=== PATIENT | male | born 1950 | race Caucasian/White ===

== ENCOUNTER 2023-07-25 16:01 | Emergency (ER) | payer MEDICARE, SELFPAY ==
[2023-07-25 16:01] VITALS: BMI 36.4
[2023-07-25 16:08] VITALS: BP 169/83
[2023-07-25 16:43] LABS: Hematocrit 41.9 % (39.0-52.0); Hemoglobin 15.2 g/dL (13.0-18.0); Mean Corp Hgb Conc. 36.3 g/dL (33.0-37.0); Mean Corpuscular Hgb 32.3 pg (27.0-31.0); Mean Platelet Volume 10.3 fL (7.4-10.4); Platelet Count 194 10^3/uL (130-400); Red Blood Cell Count 4.71 10^6/uL (4.70-6.10); Red Cell Dist. Width 12.8 % (11.5-14.5); White Blood Cell Count 6.1 10^3/uL (4.8-10.8)
[2023-07-25 16:51] LABS: ALT (SGPT) 28 U/L (0-50); AST (SGOT) 34 U/L (17-59); Albumin 4.3 g/dl (3.5-5.0); Alkaline Phosphatase 50 U/L (38-126); Blood Urea Nitrogen 16 mg/dl (9-20); Calcium 9.6 mg/dl (8.4-10.2); Carbon Dioxide 25 mmol/L (22-30); Chloride 106 mmol/L (98-107); Glucose 93 mg/dl (70-99); Potassium 4.2 mmol/L (3.5-5.1); Sodium 140 mmol/L (135-145); Total Bilirubin 0.7 mg/dl (0.2-1.3); Total Protein 7.2 g/dl (6.3-8.2); eGFR > 60.00
[2023-07-25 16:57] LABS: Troponin I < 0.012 ng/ml
[2023-07-25 17:00] VITALS: BP 132/71
[2023-07-25 18:00] VITALS: BP 130/66
[2023-07-25 18:26] LABS: COVID-19 Antigen Negative (Negative)
[2023-07-25] MEDS: DUONEB 3 ML INH (18:52)
[2023-07-25] MEDS: SOLU-MEDROL PF 125 MG IV (18:53)
[2023-07-25 19:00] VITALS: BP 135/65
--- NOTE | 2023-07-25 19:30 | ED.GENMED ---
History of Present Illness
General
Chief Complaint: Chest Pain
Source: patient and spouse
Exam Limitations: none
Time Seen by Provider: 07/25/23 16:56
Nursing documentation reviewed up to this point in time: agreed with
Travel History
Have you had any contact with someone who has COVID-19?: No
Do you have any symptoms of coronavirus? Fever > 100 degrees, chills, cough, shortness of breath, sore throat, loss of taste or smell, muscle aches, or headache?: Yes
Symptoms:: see above
History of Present Illness
History of Present Illness:
72-year-old male with a past medical history of hypertension, hyperlipidemia, PVCs, COPD, BIPIN, obesity, BPH who presents to the emergency department with his for evaluation of chest pain, cough, sore throat, congestion. Patient reports that he
has been feeling unwell for the past 3 days and his symptoms have been constant. He reports that initially he noticed 'horrendous' postnasal drip and his associated sore throat. He says he has had hacking nonproductive cough. He says that he has
felt generally fatigued. He tells me that over the past day or 2 he has started develop some pain in the chest as well as some mild shortness of breath. He says he has noticed more PVCs than usual. He says that symptoms seem to be worsening which
prompted him to come to the emergency room to be assessed. He denies any exertional component to his chest pain but he does feel more fatigued than usual with exertion. He denies any fevers or chills. He denies any swelling or pain in his legs.
He denies any other specific complaints. He does note that he has a history of significant allergies including to cats and he recently adopted a kitten.
Past History
Past History
ED Past Medical History: GERD, HTN, Hypercholesterolemia, Other (GERD, hypertension, hyperlipidemia, diverticulitis with bowel resection) and Other
ED Past Surgical History: Bowel resection
Social History
Tobacco: Non-smoker
Alcohol: Occasional
Personal:
Living: with family
Employment: Employed
Family History
Family History: Hypertension and Other (Brother had a stroke)
Review of Systems
Review of Systems
All Other Systems: ROS reviewed and negative except as documented in HPI and ROS
Constitutional: Reports fatigue; Denies fever or chills
EENT: Reports sore throat and runny nose
Respiratory: Reports cough and trouble breathing
Cardiac: Reports chest pain and palpitations; Denies diaphoresis
ABD/GI: Denies abdominal pain, nausea, vomiting or diarrhea
: Denies flank pain
Musculoskeletal: Denies edema, neck pain or back pain
Neurological: Denies dizzy, headache, weakness or numbness
Phy Exam
Physical Exam
Physical Exam:
General: Awake, alert, oriented x3; no acute distress
Head: Normocephalic, atraumatic
Eyes: Conjunctiva normal, pupils equal round and reactive to light bilaterally
Throat: Airway intact, handling secretions, slight erythema posterior pharynx but no tonsillar enlargement or exudate, midline uvula
Neck: Trachea midline, no JVD
Lungs: Occasional coughing and scattered wheeze but no focal rales or rhonchi, normal respiratory rate, normal pulse ox on room air
Heart: Regular rate and rhythm, no murmurs, gallops, or rubs
Abd: Soft, non distended, nontender
Neuro: Cranial nerves grossly intact, speech fluid
Skin: no rash
Extremities: No edema in extremities, equal pulses in all extremities
Scores
Heart Failure Risk
Heart Failure Risk Score: Not Applicable
Heart Score for Chest Pain Patients
STEMI patient?: No
History: Slightly or Non-Suspicious
ECG: Normal
Age: >/= 65 years
Risk Factors: >/= 3 Risk Factors or History of CAD
Troponin: </= Normal Limit
Heart Score for Chest Pain Patients: 4
Heart Score Risk: 20.3% MACE over next 6 weeks
Withdrawal Assessment of Alcohol
Withdrawal Assessment Completed?: Not applicable
Course
Orders/Labs/Results
Orders:
Orders
07/25/23 16:03
ECG [Electrocardiogram (*1)] Urgent
Reason for Study: Chest Pain
EKG- Treatment ONCE
07/25/23 16:24
Complete Blood Count/No Diff Urgent
Comprehensive Metabolic Panel Urgent
NT-proBNP Urgent
Comment: ADD ON
Troponin I Urgent
07/25/23 17:34
CR Chest - 2 Views Urgent
Comment:
Reason For Exam: chest pain, SOB
07/25/23 17:52
Add On- LAB Urgent
Tests Added?: proBNP
07/25/23 18:04
COVID-19 Antigen Urgent
Source: Nasal Swab
Influenza A+B Rapid Molecular Urgent
CANDE Source: Nasal Swab
Specimen Description:
07/25/23 18:37
Ipratropium/Albuterol Sulfate [Duoneb] 3 ml INH R NOW ONE
07/25/23 18:38
MethylPREDNISolone PF [Solu-Medrol Pf] 125 mg IV NOW STA
Abnormal Lab Results
07/25/23
16:24
MCH 32.3 H pg
(27.0-31.0)
07/25/23 16:24
07/25/23 16:24
Vital Signs
Initial and Last Documented VS:
Initial Vital Signs
Temp Pulse Resp BP Pulse Ox
36.8 C 73 18 169/83 97
07/25/23 16:08 07/25/23 16:08 07/25/23 16:08 07/25/23 16:08 07/25/23 16:08
Last Documented Vital Signs
Temp Pulse Resp BP Pulse Ox
36.8 C 63 15 135/65 99
07/25/23 16:08 07/25/23 19:00 07/25/23 19:00 07/25/23 19:00 07/25/23 19:00
MDM/Problems Addressed
Differential Diagnosis Includes:
Viral bronchitis, pneumonia, viral URI, allergic rhinitis/bronchitis, COPD exacerbation, ACS/CHF
MDM/Problems Addressed:
72-year-old male with past medical history as documented presents to the emergency room with congestion/postnasal drip and sore throat with accompanying cough and now progressive chest pain and shortness of breath. Hypertensive in triage which
normalized by my assessment, otherwise normal vitals including pulse ox of 99% on room air and respiratory rate of 15-18. Physical exam is as above. By history I suspect that this is either allergic rhinosinusitis leading to COPD exacerbation or
perhaps a viral infection leading to bronchitis/COPD exacerbation. Will plan to place an IV check labs including a CBC and a CMP, troponin. Will check viral swabs. Check chest x-ray. Will treat with a DuoNeb and steroid. Will monitor closely
reassess after the above.
Labs reviewed: CBC and CMP unremarkable. Troponin undetectable and with consistent symptoms for greater than 24 hours this is sufficient to rule out acute PA. His chest x-ray reviewed by me shows no pneumonia or other acute pathology. Patient
received DuoNeb continue to monitor pending treatment and will reassess.
Patient feeling better after DuoNeb and steroid here. Lungs clear to auscultation. Vital signs have been stable. I suspect that this is likely bronchitis/COPD exacerbation likely triggered by allergies with pollen and recent adoption of kitten to
which he is allergic. Plan to start on steroid for the next few days and prescribed albuterol for patient to use via nebulizer. No clear indication for admission at this point in time, I think he is stable for discharge and can follow-up with his
primary physician as an outpatient. He feels very comfortable with this plan. We spoke about return precautions and all questions were answered.
Chronic conditions affecting care:
COPD, hypertension
Acute Exacerbation and/or Progression of Chronic Illness:
Acutely hypertensive resolved without intervention continue to monitor but no additional antihypertensive indicated at present
Acute Exacerbation and/or Progression of Chronic Illness: HTN
*Radiology
Radiology exam reviewed: preliminary read by ED provider and radiology read reviewed
*Pulse Oximetry
Patient hypoxic: no
*EKG
Interpreted by ED Provider?: Yes
Heart Rate: 76
Rate: normal
Rhythm: sinus
[place]: normal axis
Interval: normal interval
QRS Pattern: normal QRS
Ischemia: no ischemia
*Critical Care Note
Total Time (30-74mins, 75-104mins- exclusive of procedures): Not Applicable
Data Reviewed
Review of Other/Old Records Reveals: Labs and Records
Source: patient, records and spouse
ED Attending Note
-
Portions of this chart may have been created with voice recognition software.� Occasional wrong word or��sound alike� substitutions may have occurred due to the inherent limitations of voice recognition software.
Discharge Plan
Departure
Patient Disposition: Home (Routine Discharge)
Date of Disposition: 07/25/23
Time of Disposition: 20:20
Patient with high blood pressure during this ER visit?: Yes
Discharge Problem:
Bronchitis
Instructions: Bronchitis, Adult ED
Prescriptions:
New
methylprednisolone [Methylpred DP] 4 mg tablets,dose pack
See Rx Instructions .ROUTE .COMPLEX Qty: 21 0RF
Rx Instructions:
for 6 days
albuterol sulfate 2.5 mg /3 mL (0.083 %) solution for nebulization
2.5 mg inhalation Q4H PRN (Reason: shortness of breath or wheezing) Qty: 75 0RF
No Action
lisinopril 20 MG tablet
20 mg PO BID
pantoprazole 40 MG tablet,delayed release (DR/EC)
40 mg PO HS
finasteride 5 MG tablet
5 mg PO DAILY
cholecalciferol (vitamin D3) 2,000 UNIT tablet
2,000 unit PO DAILY
cyanocobalamin (vitamin B-12) 5,000 MCG tablet,disintegrating
5,000 mcg PO DAILY
coenzyme Q10 [Co Q-10] 100 MG capsule
100 mg PO DAILY
Hold Instructions: Resume on 11/26/22.
hydroxychloroquine [Plaquenil] 200 MG tablet
200 mg PO BID
jtpcqnnpxyt-uqixyblai-ray C-Mn [Glucosamine Chondroitin MaxStr] 500-400 mg Capsule
1 cap PO DAILY
Hold Instructions: Resume on 11/26/22.
mupirocin 2 % ointment
1 applic topical BID Qty: 1 0RF
Patient Comments:
started 3 days ago
meloxicam 15 mg tablet
15 mg PO DAILY Qty: 14 0RF
Rx Instructions:
take with food
post-op
tramadol 50 mg tablet
50 - 100 mg PO Q6H PRN (Reason: 1 tab moderate, 2 tabs if pain severe) Qty: 30 0RF
Rx Instructions:
Dx Orthopedic surgery
Ongoing therapy
post-op
gabapentin 300 mg capsule
300 mg PO HS Qty: 10 0RF
ondansetron [ondansetron] 4 mg tablet,disintegrating
4 mg PO Q6H PRN (Reason: n/v) Qty: 15 0RF
Rx Instructions:
take 1/2h b/f pain med if recurrent nausea
allow to dissolve in mouth w/o water
aspirin 325 mg tablet
325 mg PO DAILY Qty: 1 0RF
Rx Instructions:
Take with food
docusate sodium [Colace] 100 mg capsule
100 mg PO BID Qty: 1 0RF
magnesium hydroxide [Milk of Magnesia] 400 mg/5 mL suspension
30 ml PO HS PRN (Reason: Constipation) Qty: 1 0RF
sennosides [Senokot] 8.6 mg tablet
17.2 mg PO BID Qty: 2 0RF
acetaminophen [Tylenol] 325 mg capsule
650 mg PO QID Qty: 2 0RF
dicyclomine 10 mg capsule
10 mg PO QID PRN (Reason: abdominal pain) Qty: 20 0RF
Referrals:
Rylan Wall, DO [Family Provider] - Follow up in 5-7 days
Activity Restrictions/Additional Instructions:
Thank you for visiting the Emergency Department at [facility].
1. Please schedule a follow up appointment as directed. Call first thing tomorrow morning to make an appointment.
2. If indicated, please take your medications as instructed and indicated on discharge paperwork.
3. If any of your symptoms do not improve, or persist, or become more severe within 6-12 hours, please return to the emergency department for further care.
4. Please return to the emergency department if you develop a headache, neck pain/stiffness, fever greater than 100.4F, chest pain, shortness of breath, persistent nausea, vomiting, slurred speech, difficulty walking, numbness/tingling, weakness,
signs of infection or any other symptoms that are worrisome to you.
Please call [phone] if you have any questions.
Interventions
Interventions:
*Risk Screen - Suicide Last Done: 07/25/23 17:05
*General Assessment Last Done: 07/25/23 16:08
*Neglect/Abuse Screening Last Done: 07/25/23 16:08
ED- Fall Risk Assessment Last Done: 07/25/23 17:05
*ED COVID-19 Vaccine History Last Done: 07/25/23 16:08
ED- Cardiac Assessment Last Done: 07/25/23 17:05
Discharge Date and Time
Print Language: WELSH
[2023-07-25 20:00] VITALS: BP 131/61
[2023-07-25 20:27] LABS: NT-proBNP 32.7 pg/ml
== END 2023-07-25 20:59 | disposition home or self-care (01) ==
LOC: EMR 16:01
PROVIDERS: Emergency Medicine; EMERGENCY PHYSICIAN Emergency Medicine; FAMILY PHYSICIAN Family Medicine
DX: J40 Bronchitis, not specified as acute or chronic (principal); I10 Essential (primary) hypertension; E78.00 Pure hypercholesterolemia, unspecified; J44.9 Chronic obstructive pulmonary disease, unspecified
CPT/HCPCS: 99285; 96374; 94640; 71046; 80053; 83880; 84484; 85027; 87502; 87811; 93005

== ENCOUNTER → 2024-01-01 13:49 | Outpatient (REF) | payer MEDICARE, SELFPAY | LOC: HWRAD 13:49 | PROVIDERS: ATTENDING PHYSICIAN Family Medicine | DX: R05.1 Acute cough (principal); J40 Bronchitis, not specified as acute or chronic | CPT/HCPCS: 71046 ==

== ENCOUNTER → 2024-01-13 11:27 | Outpatient (REF) | payer MEDICARE, SELFPAY | LOC: HWRCS 11:27 | PROVIDERS: ATTENDING PHYSICIAN Internal Medicine Cardiovascular Disease; FAMILY PHYSICIAN Family Medicine | DX: I10 Essential (primary) hypertension (principal); I49.3 Ventricular premature depolarization | CPT/HCPCS: 93306 ==

== ENCOUNTER 2024-12-10 11:01 | Emergency (ER) | payer MEDICARE, SELFPAY ==
[2024-12-10 11:16] VITALS: BP 157/88
--- NOTE | 2024-12-10 11:56 | ED.GENMED ---
History of Present Illness
General
Chief Complaint: Back Pain
Source: patient and spouse
Exam Limitations: none
Time Seen by Provider: 12/10/24 11:38
History of Present Illness
History of Present Illness:
74-year-old male complaining of about 10 days of back pain that more recently has radiated to the upper back across his shoulders to his upper chest. Not truly exertional. Symptoms are there most of the time. Patient feels there may be a
positional component. No pleuritic pain no shortness of breath. Sent in by his primary physician for further evaluation. Patient has a history of chronic lower back pain. Initially thought this was musculoskeletal
Past History
Past History
ED Past Medical History: GERD, HTN, Hypercholesterolemia, Other (GERD, hypertension, hyperlipidemia, diverticulitis with bowel resection) and Other
ED Past Surgical History: Bowel resection, Orthopedic and Other (Hernia repair)
Social History
Tobacco: Non-smoker
Alcohol: Occasional
Personal:
Living: with family
Employment: Employed
Family History
Family History: Hypertension and Other (Brother had a stroke)
Review of Systems
Review of Systems
All Other Systems: Not applicable
Constitutional: Denies fever
Respiratory: Reports no symptoms
ABD/GI: Reports no symptoms
Phy Exam
Physical Exam
Physical Exam:
GENERAL: Alert and oriented in no apparent distress
EYE: Orbits normal.
NECK: Supple, no significant adenopathy.
ENT: Pharynx without erythema
CARDIAC: Regular rate and rhythm with very mild midsystolic murmur. Good distal pulses and color.
LUNGS: Clear breath sounds,normal
ABDOMEN: Soft, without focal tenderness or distention
NEUROLOGICAL: Alert and oriented , grossly non-focal
SKIN: Warm and dry, no rash or lesion, no discoloration, skin intact.
MUSCULOSKELETAL: No edema,no deformity.Good color
PSYCH: Normal and appropriate interaction.
Course
Orders/Labs/Results
Orders:
Orders
12/10/24 11:19
Electrocardiogram (*1) Urgent
Reason for Study: Other
Other Reason for Exam: back pain
EKG- Treatment ONCE
12/10/24 11:54
CT Chest/abd/pelvis Angio W/wo Urgent
Comment:
Reason For Exam: Back pain radiation to shoulders and upper chest
IV Insert/Care/Rem.- Treatment PRN
0.9% Sodium Chloride 500 ml [Nss] 500 ml IV BOLUS
Pulse Ox/cont/shift [RESP] Stat
Quantity: 1
12/10/24 11:55
Cardiac Monitoring- Treatment ONCE
12/10/24 12:05
Basic Metabolic Panel Urgent
Complete Blood Count/With Diff Urgent
Lipase Urgent
Troponin I Urgent
12/10/24 12:59
CT Head W/o Iv Contrast Urgent
Comment:
Reason For Exam: Lightheadedness/cognitive issue
12/10/24 15:21
Add On- LAB Urgent
Tests Added?: lyme progressive
Abnormal Lab Results
12/10/24
12:05
RBC 4.65 L 10^6/uL
(4.70-6.10)
MCH 32.0 H pg
(27.0-31.0)
MPV 10.5 H fL
(7.4-10.4)
Chloride 109 H mmol/L
(98-107)
Glucose 105 H mg/dl
(70-99)
12/10/24 12:05
12/10/24 12:05
Vital Signs
Initial and Last Documented VS:
Initial Vital Signs
Temp Pulse Resp BP Pulse Ox
98.0 F 61 16 157/88 98
12/10/24 11:16 12/10/24 11:16 12/10/24 11:16 12/10/24 11:16 10/04/25 11:16
Last Documented Vital Signs
Temp Pulse Resp BP Pulse Ox
98.0 F 60 16 120/61 98
12/10/24 11:16 12/10/24 13:00 12/10/24 13:00 12/10/24 13:00 12/10/24 13:00
MDM/Problems Addressed
Differential Diagnosis Includes:
Patient has had a relatively constant symptoms for 10 days. Relatively unlikely to be cardiac given the longevity of the symptoms. EKG is normal. Will check troponin. Dissection would also be a concern with the back pain extending up towards his
shoulders and across to his upper chest. Feel this needs to be ruled out. Workup in progress
*Radiology
Radiology exam reviewed: radiology read reviewed (No acute findings. Calcified aorta and coronary arteries. Possible right lung opacity. Steatosis. Diverticulosis. Diverticulum of the bladder. Hernia. Degenerative changes of the lower spine.
Head CT no acute findings)
*Pulse Oximetry
SaO2: 98
Oxygen Mode of Delivery: Room air
Patient hypoxic: no
*EKG
Interpreted by ED Provider?: Yes
Interpretation: normal
Comparison EKG: no changes
Heart Rate: 58
Rate: bradycardiac
Rhythm: sinus
[place]: normal axis
Interval: normal interval
QRS Pattern: normal QRS
Ischemia: no ischemia
*Critical Care Note
Total Time (30-74mins, 75-104mins- exclusive of procedures): Not Applicable
Update Note
Update Note:
Patient is remained stable. From a cardiac standpoint he has had symptoms most of the time over the last 10 days with a perfectly normal troponin. Do not feel repeat troponin is warranted. Low clinical suspicion. Patient's primary is in
agreement. Will follow-up with cardiology. Back pain I cannot find an obvious explanation or serious etiology. No acute vascular issue. Significant vascular calcifications but no acute findings. As for his lightheaded feeling again his
neurologic exam is normal. His head CT is negative. He is in no distress. I offered admission for observation although medically I feel it is reasonable to be discharged for outpatient follow-up. He is comfortable with this approach. Copy of CT
report given to patient for follow-up.
ED Attending Note
-
Portions of this chart may have been created with voice recognition software.� Occasional wrong word or��sound alike� substitutions may have occurred due to the inherent limitations of voice recognition software.
Discharge Plan
Departure
Patient Disposition: Home (Routine Discharge)
Date of Disposition: 12/10/24
Time of Disposition: 15:18
Patient with high blood pressure during this ER visit?: Yes
Discharge Problem:
Ongoing back pain radiation to shoulders, Possible pulmonary mass
Instructions: Low Back Pain (DC), Upper Back Pain (DC), Chest Pain DCA Follow Up, BLOOD PRESSURE
Prescriptions:
No Action
lisinopril 20 MG tablet
20 mg PO BID
pantoprazole 40 MG tablet,delayed release (DR/EC)
40 mg PO HS
finasteride 5 MG tablet
5 mg PO DAILY
cholecalciferol (vitamin D3) 2,000 UNIT tablet
2,000 unit PO DAILY
cyanocobalamin (vitamin B-12) 5,000 MCG tablet,disintegrating
5,000 mcg PO DAILY
coenzyme Q10 [Co Q-10] 100 MG capsule
100 mg PO DAILY
hydroxychloroquine [Plaquenil] 200 MG tablet
200 mg PO BID
rcxrkjhheve-oqqcpnzzc-nof C-Mn [Glucosamine Chondroitin MaxStr] 500-400 mg Capsule
1 cap PO DAILY
mupirocin 2 % ointment
1 applic topical BID Qty: 1 0RF
Patient Comments:
started 3 days ago
meloxicam 15 mg tablet
15 mg PO DAILY Qty: 14 0RF
Rx Instructions:
take with food
post-op
tramadol 50 mg tablet
50 - 100 mg PO Q6H PRN (Reason: 1 tab moderate, 2 tabs if pain severe) Qty: 30 0RF
Rx Instructions:
Dx Orthopedic surgery
Ongoing therapy
post-op
gabapentin 300 mg capsule
300 mg PO HS Qty: 10 0RF
ondansetron [ondansetron] 4 mg tablet,disintegrating
4 mg PO Q6H PRN (Reason: n/v) Qty: 15 0RF
Rx Instructions:
take 1/2h b/f pain med if recurrent nausea
allow to dissolve in mouth w/o water
aspirin 325 mg tablet
325 mg PO DAILY Qty: 1 0RF
Rx Instructions:
Take with food
docusate sodium [Colace] 100 mg capsule
100 mg PO BID Qty: 1 0RF
magnesium hydroxide [Milk of Magnesia] 400 mg/5 mL suspension
30 ml PO HS PRN (Reason: Constipation) Qty: 1 0RF
sennosides [Senokot] 8.6 mg tablet
17.2 mg PO BID Qty: 2 0RF
acetaminophen [Tylenol] 325 mg capsule
650 mg PO QID Qty: 2 0RF
dicyclomine 10 mg capsule
10 mg PO QID PRN (Reason: abdominal pain) Qty: 20 0RF
methylprednisolone [Methylpred DP] 4 mg tablets,dose pack
See Rx Instructions .ROUTE .COMPLEX Qty: 21 0RF
Rx Instructions:
for 6 days
albuterol sulfate 2.5 mg /3 mL (0.083 %) solution for nebulization
2.5 mg inhalation Q4H PRN (Reason: shortness of breath or wheezing) Qty: 75 0RF
albuterol sulfate [ProAir HFA] 90 mcg/actuation HFA aerosol inhaler
1 puff inhalation Q4HPRN PRN (Reason: shortness of breath) Qty: 6.7 0RF
Referrals:
Rylan Wall DO [Primary Care Provider, Family Practice] - Follow up in 2-3 days
Activity Restrictions/Additional Instructions:
The cardiology group should call you Thursday for close follow-up
Follow-up closely with your primary physician and with your heat set operator concerning your CAT scan finding
Return with any concerns including worsening lightheadedness weakness acute neurologic symptoms worsening chest pain etc.
Test should be back in 3 to 4 days
Interventions
Interventions:
*Risk Screen - Suicide Last Done: 12/10/24 11:16
*Neglect/Abuse Screening Last Done: 12/10/24 11:16
ED- Cardiac Assessment Last Done: 12/10/24 12:20
ED-Musculoskeletal Assessment Last Done: 12/10/24 12:20
ED- Pulmonary Assessment Last Done: 12/10/24 12:20
Discharge Date and Time
Print Language: SLOVENIAN
[2024-12-10] MEDS: NSS 500 IV (12:10)
[2024-12-10 12:12] VITALS: BMI 35.8
[2024-12-10 12:12] LABS: Hematocrit 42.8 % (39.0-52.0); Hemoglobin 14.9 g/dL (13.0-18.0); Mean Corp Hgb Conc. 34.8 g/dL (33.0-37.0); Mean Corpuscular Volume 92.0 fL (80.0-94.0); Nucleated Red Blood Cells % 0 % (-); Platelet Count 178 10^3/uL (130-400); Red Cell Dist. Width 12.4 % (11.5-14.5)
[2024-12-10 12:39] LABS: Blood Urea Nitrogen 17 mg/dl (9-20); Calcium 9.1 mg/dl (8.4-10.2); Carbon Dioxide 25 mmol/L (22-30); Chloride 109 mmol/L (98-107); Estimated Creatinine Clearance 105 ml/min; Glucose 105 mg/dl (70-99); Lipase 36 U/L (23-300); Sodium 139 mmol/L (135-145); eGFR > 60.00
[2024-12-10 12:49] LABS: Troponin I < 0.012 ng/ml
[2024-12-10 13:00] VITALS: BP 120/61
[2024-12-12 16:09] LABS: Lyme Antibody Screen, EIA Negative (Negative)
== END 2024-12-10 15:28 | disposition home or self-care (01) ==
LOC: EMR 11:01
PROVIDERS: EMERGENCY PHYSICIAN Emergency Medicine; PRIMARYCARE PHYSICIAN Family Medicine
DX: M54.6 Pain in thoracic spine (principal); R07.89 Other chest pain; G89.29 Other chronic pain; M54.50 Low back pain, unspecified; I10 Essential (primary) hypertension; E78.00 Pure hypercholesterolemia, unspecified
CPT/HCPCS: 99284; 96360; 96361; 70450; 71275; 74174; 80048; 83690; 84484; 85025; 86618; 93005; Q9967

== ENCOUNTER → 2025-01-03 07:43 | Outpatient (REF) | payer MEDICARE, SELFPAY | LOC: HWRAD 07:43 | PROVIDERS: ATTENDING PHYSICIAN Internal Medicine Critical Care Medicine; FAMILY PHYSICIAN Family Medicine | DX: R91.1 Solitary pulmonary nodule (principal) | CPT/HCPCS: 71250 ==

== ENCOUNTER 2025-02-06 06:23 | Day surgery (SDC) | payer MEDICARE, SELFPAY ==
[2025-02-03 10:59] LABS: Hematocrit 45.0 % (39.0-52.0); Hemoglobin 15.3 g/dL (13.0-18.0); Mean Corp Hgb Conc. 34.0 g/dL (33.0-37.0); Mean Corpuscular Volume 94.1 fL (80.0-94.0); Platelet Count 195 10^3/uL (130-400); Red Cell Dist. Width 12.7 % (11.5-14.5)
[2025-02-03 11:08] LABS: INR 1.08; PT 14.1 Sec (11.4-14.6)
[2025-02-03 11:09] LABS: APTT 31.0 Sec (23.4-35.0)
[2025-02-03 11:34] LABS: Blood Urea Nitrogen 17 mg/dl (9-20); Calcium 9.6 mg/dl (8.4-10.2); Carbon Dioxide 30 mmol/L (22-30); Chloride 104 mmol/L (98-107); Glucose 112 mg/dl (70-99); Potassium 4.5 mmol/L (3.5-5.1); Sodium 139 mmol/L (135-145); eGFR > 60.00
[2025-02-06] VITALS (9 sets, daily range): BP systolic 103–129; BP diastolic 49–90
== END 2025-02-06 14:52 | disposition home or self-care (01) ==
LOC: SDS 06:23
PROVIDERS: ATTENDING PHYSICIAN Internal Medicine; FAMILY PHYSICIAN Family Medicine
DX: R91.1 Solitary pulmonary nodule (principal); J98.4 Other disorders of lung; J44.9 Chronic obstructive pulmonary disease, unspecified; G47.34 Idiopathic sleep related nonobstructive alveolar hypoventilation
CPT/HCPCS: 31629; 31628; 31624; 31623; 31627; 31654; 36415; 71045; 76000; 80048; 85027; 85610; 85730; 87015; 87070; 87102; 87116; 87205; 88112; 88172; 88173; 88305; 88333; 88334; 88341; 88342; 94640; C1713; C1887